=== PATIENT | female | born 1950 | race Caucasian/White ===

== ENCOUNTER → 2016-11-10 | Outpatient (CLI) | payer OTHER ==
[~2016-11-10] MED LIST: FLUOXETINE HCL20 M1 PO; HYDROXYZINE HCL50 MG PO; LISINOPRIL5 MG PO; TESSALON PERLE100 M1 PO
[2016-11-10 15:22] LABS: HEMOGLOBIN 11.9 gm/dL (12.0-16.0); MEAN CELL VOLUME 104.5 FL (83-96); MEAN CORPUSCULAR HEMOGLOBIN 35.4 PG (28-34); MEAN CORPUSCULAR HGB CONC 33.9 g/dL (30-36); MEAN PLATELET VOLUME 8.2 FL (6.5-11.5); RED BLOOD COUNT 3.35 X10e (3.90-5.30); RED CELL DISTRIBUTION WIDTH 14.7 % (11.0-15.5); WHITE BLOOD COUNT 4.1 X10e3 (4.0-10.5)
== END | disposition home or self-care (01) ==
LOC: CLAB 14:37
PROVIDERS: Internal Medicine
DX: C18.9 Malignant neoplasm of colon, unspecified (principal)
CPT/HCPCS: 85027